=== PATIENT | male | born 1980 | race Caucasian/White ===

== ENCOUNTER 2021-06-01 15:15 | Emergency (ER) | payer BC ==
[2021-06-01 15:30] VITALS: BMI 33.0
[2021-06-01] MEDS ORDERED: CASIRIVIMAB/IMDEVIMAB 10 ML in SODIUM CHLORIDE 100 ML IVPB ONE (16:11)
[2021-06-01 17:35] VITALS: TEMP 98.8
[2021-06-01 17:55] VITALS: BP 112/59; PULSE 70
== END 2021-06-01 18:59 | disposition home or self-care (01) ==
LOC: JCOVINFU 15:15
DX: U07.1 COVID-19 (principal)
CPT/HCPCS: 99284-25; M0240; Q0240